=== PATIENT | female | born 1940 | race Caucasian/White ===

== ENCOUNTER 2022-01-18 15:01 | Emergency (ER) | payer MEDICARE ==
--- NOTE | 2022-01-18 15:52 | ED ---
General Adult HPI - General Chief complaint: Neuro Symptoms/Deficit Stated complaint: Weakness Time Seen by Provider: 01/18/22 15:35 Source: patient, RN notes reviewed, old records reviewed Mode of arrival: ambulatory Limitations: no limitations - History of Present Illness Initial comments: Patient has a 81-year-old female with past medical history remarkable for hypertension, atrial fibrillation on xeralto who presents emergency Department complaining of weakness. States she is having intermittent weakness over the last few days. States she was having difficulty picking up things like a few days ago. He has recurred each day. Unknown if it is constant or not. Today family also noticed that for a brief period time she was dragging her right leg when she walked. That is since resolved. She denies any history of strokes. States she is compliant with her blood thinning medication. His no other acute complaints at this time. Denies any sensory deficits. Denies any current weakness. Is ambulating without difficulty. Patient's son presents with her and corroborates the story. States she is back to her baseline at this time. Denies any trauma or falls. - Related Data Home Medications Medication Instructions Recorded Confirmed Ferrous Sulfate [Feosol] 325 mg PO BID 01/18/22 01/18/22 Levothyroxine Sodium [Synthroid] 100 mcg PO DAILY 01/18/22 01/18/22 Losartan Potassium 50 mg PO HS 01/18/22 01/18/22 Omeprazole Magnesium [PriLOSEC OTC] 20 mg PO DAILY 01/18/22 01/18/22 Pantoprazole Sodium 40 mg PO DAILY 01/18/22 01/18/22 Pioglitazone [Actos] 30 mg PO DAILY 01/18/22 01/18/22 Rivaroxaban [Xarelto] 20 mg PO HS 01/18/22 01/18/22 Simvastatin 40 mg PO HS 01/18/22 01/18/22 glipiZIDE [Glucotrol] 10 mg PO BID 01/18/22 01/18/22 hydroCHLOROthiazide [Hydrodiuril] 25 mg PO DAILY 01/18/22 01/18/22 metFORMIN HCL [Glucophage] 1,000 mg PO BID 01/18/22 01/18/22 Allergies Allergy/AdvReac Type Severity Reaction Status Date / Time Penicillins Allergy Facial Verified 01/18/22 17:27 Swelling Review of Systems ROS Statement: Those systems with pertinent positive or pertinent negative responses have been documented in the HPI. Review of Systems: CONST: Denies fever EYES: Denies blurry vision ENT: Denies nasal congestion C/V: Denies Chest pain RESP: Denies shortness of breath GI: Denies abdominal pain : Denies dysuria SKIN: Denies rash. MSK: Denies joint pain. NEURO: Denies headache ROS Other: All systems not noted in ROS Statement are negative. Past Medical History Past Medical History: Atrial Fibrillation, Hypertension History of Any Multi-Drug Resistant Organisms: None Reported Past Surgical History: Cholecystectomy Past Psychological History: No Psychological Hx Reported Smoking Status: Never smoker Past Alcohol Use History: None Reported Past Drug Use History: None Reported General Exam - General Exam Comments Initial Comments: General: Appears in no acute distress. HEAD: Normal with no signs of head trauma. EYES: PERRLA, EOMI, conjunctiva normal, no discharge. Pupils are 3 mm equal bilaterally. ENT: Hearing grossly intact, normal oropharynx. RESPIRATORY: Clear breath sounds bilaterally. No wheezes, rales, or rhonchi. C/V: Regular rate and rhythm. S1 and S2 auscultated, no edema, peripheral pulses 2+ and intact throughout ABD: Abd is soft, nontender, nondistended EXT: Normal range of motion, no obvious deformity SKIN: No rashes or lesions observed on exposed skin. NEURO: Alert and oriented x 4. Cranial nerves II-XII intact. No focal sensory or strength deficits. NIH is 0. GCS of 15. Ambulates without difficulty. Limitations: no limitations Course Vital Signs 01/18/22 01/18/22 01/18/22 15:14 16:50 18:23 Temperature 98.2 F Pulse Rate 93 82 57 L Respiratory 16 18 18 Rate Blood Pressure 197/93 154/81 186/103 O2 Sat by Pulse 99 98 99 Oximetry 01/18/22 19:28 Temperature 98.1 F Pulse Rate 99 Respiratory 16 Rate Blood Pressure 171/82 O2 Sat by Pulse 99 Oximetry Medical Decision Making - Medical Decision Making Based on the patient's presentation and physical exam, patient presents with nonspecific neurological complaints that are not reproducible on exam. Initially complaints and findings including issues with grasping with her right hand began a few days ago. Greater than 24 hours ago. Family members also noticed the patient dragging her right foot somewhat when she walked. All symptoms have since resolved. No history of strokes. Patient is not a TPA candidate as she is on a blood thinning medication, and the NIH is 0 at this time. Risks far outweigh the benefits. Patient is also having symptoms for greater than 24 hours. Therefore, code stroke was not activated. We will however obtain a similar workup, including obtaining a urinalysis, basic labs, screening EKG, and CT imaging of the brain. Patient and patient's son were in agreement with this plan. EKG shows no signs of acute ischemia. Normal sinus rhythm.Laboratory studies were all unremarkable. Blood sugar was within normal limits. Vital signs remained within normal limits at this time. Chest x-ray shows no acute cardio pulmonary process. Brain CT and CT angiogram of the neck and brain revealed a 1.9 cm masslike area concerned for primary malignancy versus metastatic region located in the left parietal region with surrounding vasogenic edema. No signs of midline shift. I updated the patient and explained to her that it there is concern for brain cancer with the presence of a mass which is likely causing her intermittent symptoms over the last few days. She and her express understanding understanding. The plan is to admit this hospital. I spoke with Dr. flowers of oncology was in agreement with admitting. We felt that with the lack neuro deficits of midline shift, it was safe for admission here for further workup including imaging to evaluate for other lesions. MRI of brain was ordered with contrast as well as CT of the chest, abdomen, pelvis. Xeralto will be held. I discussed the case with the city call physician, Dr. griffin as well as neurology Dr. cleveland. After further discussion, decision was made to transfer the patient in the event that she does require neurosurgical care due to the brain lesion and absence for neurosurgery at our facility. She may require biopsy or other intervention if symptoms worsen. I did discuss this with Dr. Flowers who was made aware of the transfer. I discussed transfer with the patient who accepted. I spoke with Dr. Sanchez of [facility] who accepted the patient. She'll be transferred via EMS in stable condition. Patient was started on 4 mg IV push of Decadron every 8 hours for the vasogenic edema. Home antihypertensives were ordered. Vitals remain wnl. NIH remains 0. Plan is for completion of cancer workup at the outpatient facility. The patient and her were in agreement with this plan. - Lab Data Result diagrams: 01/18/22 15:47 01/18/22 15:47 Lab Results 01/18/22 01/18/22 01/18/22 Range/Units 15:47 15:47 15:47 WBC 6.5 (3.8-10.6) k/uL RBC 4.22 (3.80-5.40) m/uL Hgb 12.2 (11.4-16.0) gm/dL Hct 37.4 (34.0-46.0) % MCV 88.6 (80.0-100.0) fL MCH 29.0 (25.0-35.0) pg MCHC 32.7 (31.0-37.0) g/dL RDW 13.8 (11.5-15.5) % Plt Count 238 (150-450) k/uL MPV 6.9 Neutrophils % 62 % Lymphocytes % 28 % Monocytes % 7 % Eosinophils % 2 % Basophils % 0 % Neutrophils # 4.0 (1.3-7.7) k/uL Lymphocytes # 1.8 (1.0-4.8) k/uL Monocytes # 0.4 (0-1.0) k/uL Eosinophils # 0.1 (0-0.7) k/uL Basophils # 0.0 (0-0.2) k/uL PT 10.4 (9.0-12.0) sec INR 1.0 (<1.2) APTT 25.1 (22.0-30.0) sec Sodium 136 L (137-145) mmol/L Potassium 3.6 (3.5-5.1) mmol/L Chloride 99 (98-107) mmol/L Carbon Dioxide 25 (22-30) mmol/L Anion Gap 12 mmol/L BUN 13 (7-17) mg/dL Creatinine 0.81 (0.52-1.04) mg/dL Est GFR (CKD-EPI)AfAm 79 (>60 ml/min/1.73 sqM) Est GFR (CKD-EPI)NonAf 69 (>60 ml/min/1.73 sqM) Glucose 130 H (74-99) mg/dL POC Glucose (mg/dL) (70-110) mg/dL POC Glu Supervising Fire Marshal ID Calcium 9.8 (8.4-10.2) mg/dL Total Bilirubin 0.5 (0.2-1.3) mg/dL AST 18 (14-36) U/L ALT 16 (4-34) U/L Alkaline Phosphatase 81 (38-126) U/L Total Protein 7.5 (6.3-8.2) g/dL Albumin 4.8 (3.5-5.0) g/dL Urine Color Urine Appearance (Clear) Urine pH (5.0-8.0) Ur Specific [place] (1.001-1.035) Urine Protein (Negative) Urine Glucose (UA) (Negative) Urine Ketones (Negative) Urine Blood (Negative) Urine Nitrite (Negative) Urine Bilirubin (Negative) Urine Urobilinogen (<2.0) mg/dL Ur Leukocyte Esterase (Negative) 01/18/22 01/18/22 Range/Units 17:35 20:24 WBC (3.8-10.6) k/uL RBC (3.80-5.40) m/uL Hgb (11.4-16.0) gm/dL Hct (34.0-46.0) % MCV (80.0-100.0) fL MCH (25.0-35.0) pg MCHC (31.0-37.0) g/dL RDW (11.5-15.5) % Plt Count (150-450) k/uL MPV Neutrophils % % Lymphocytes % % Monocytes % % Eosinophils % % Basophils % % Neutrophils # (1.3-7.7) k/uL Lymphocytes # (1.0-4.8) k/uL Monocytes # (0-1.0) k/uL Eosinophils # (0-0.7) k/uL Basophils # (0-0.2) k/uL PT (9.0-12.0) sec INR (<1.2) APTT (22.0-30.0) sec Sodium (137-145) mmol/L Potassium (3.5-5.1) mmol/L Chloride (98-107) mmol/L Carbon Dioxide (22-30) mmol/L Anion Gap mmol/L BUN (7-17) mg/dL Creatinine (0.52-1.04) mg/dL Est GFR (CKD-EPI)AfAm (>60 ml/min/1.73 sqM) Est GFR (CKD-EPI)NonAf (>60 ml/min/1.73 sqM) Glucose (74-99) mg/dL POC Glucose (mg/dL) 326 H (70-110) mg/dL POC Glu [employer] Marimar Meléndez Calcium (8.4-10.2) mg/dL Total Bilirubin (0.2-1.3) mg/dL AST (14-36) U/L ALT (4-34) U/L Alkaline Phosphatase (38-126) U/L Total Protein (6.3-8.2) g/dL Albumin (3.5-5.0) g/dL Urine Color Colorless Urine Appearance Clear (Clear) Urine pH 6.5 (5.0-8.0) Ur Specific [place] 1.022 (1.001-1.035) Urine Protein Trace H (Negative) Urine Glucose (UA) Negative (Negative) Urine Ketones Negative (Negative) Urine Blood Negative (Negative) Urine Nitrite Negative (Negative) Urine Bilirubin Negative (Negative) Urine Urobilinogen <2.0 (<2.0) mg/dL Ur Leukocyte Esterase Negative (Negative) - EKG Data -: EKG Interpreted by Me EKG Comments: 12-lead Electrocardiogram Interpretation Note EKG was reviewed and interpreted by myself. 12-lead ECG performed at 1538 is interpreted by me as revealing normal sinus rhythm at a rate of 90 beats per minute. [place] is normal. AR interval is 170 ms, QRS durations 101 ms, QTc is 413 ms.. There were no ST or T wave abnormalities to suggest myocardial ischemia or injury. R wave progression across the precordium was satisfactory. By my interpretation this EKG is non-diagnostic for acute ischemia. Critical Care Time Critical Care Time: Yes Total Critical Care Time: 35 Critical Care Time: Upon my evaluation, this patient had a high probability of imminent or life- threatening deterioration due to new brain mass, which required my direct attention, intervention, and personal management. I have personally provided 35 minutes of critical care time exclusive of time spent on separately billable procedures. Time includes review of laboratory data, radiology results, discussion with consultants, and monitoring for potenti al decompensation. Interventions were performed as documented in my note. Disposition Clinical Impression: Brain mass Disposition: OTHER INSTITUTION NOT DEFINED Condition: Stable Referrals: Raegan Jaffe DO [Primary Care Provider] - 1-2 days Time of Disposition: 18:40 - Out of Hospital Transfer - Req. Specs Out of Hospital Transfer - Requested Specifics: Other Emergency Center (Transfer to higher level of care, requires facility with neurosurgery.)
[2022-01-18 15:57] LABS: Basophils % (A) 0 %; Eosinophils # (A) 0.1 k/uL (0-0.7); Eosinophils % (A) 2 %; HCT 37.4 % (34.0-46.0); HGB 12.2 gm/dL (11.4-16.0); Lymphocytes # (A) 1.8 k/uL (1.0-4.8); Lymphocytes % (A) 28 %; MCHC 32.7 g/dL (31.0-37.0); MCV 88.6 fL (80.0-100.0); Mean Platelet Volume 6.9; Monocytes # (A) 0.4 k/uL (0-1.0); Monocytes % (A) 7 %; Neutrophils % (A) 62 %; Platelet Count 238 k/uL (150-450); RBC 4.22 m/uL (3.80-5.40); RDW 13.8 % (11.5-15.5); WBC 6.5 k/uL (3.8-10.6)
[2022-01-18 16:06] LABS: Albumin 4.8 g/dL (3.5-5.0); Calcium 9.8 mg/dL (8.4-10.2); Potassium 3.6 mmol/L (3.5-5.1); Total Bilirubin 0.5 mg/dL (0.2-1.3); Total Protein 7.5 g/dL (6.3-8.2)
[2022-01-18 16:07] LABS: Partial Thromboplastin Time 25.1 sec (22.0-30.0); Prothrombin Time 10.4 sec (9.0-12.0)
--- NOTE | 2022-01-18 16:09 | XR ---
EXAMINATION TYPE: XR chest 2V DATE OF EXAM: 01/18/2022 4:06 PM COMPARISON: 10/20/2013 TECHNIQUE: XR chest 2V Frontal and lateral views of the chest. CLINICAL INDICATION:Female, 81 years old with history of altered mental status; FINDINGS: Lungs/Pleura: There is flattening of the diaphragm with increased lucency of the lungs. No evidence o f pneumothorax, pleural effusion or focal consolidation. Pulmonary vascularity: Unremarkable. Heart/mediastinum: Cardiomediastinal silhouette is unremarkable. Musculoskeletal: No acute osseous pathology. IMPRESSION: No acute cardiopulmonary disease/process.
--- NOTE | 2022-01-18 16:42 | CT ---
EXAMINATION TYPE: CT brain wo con for TPA DATE OF EXAM: 01/18/2022 COMPARISON: None HISTORY: Right arm weakness. CT DLP: 1177.[address] of the brain was performed. The ventricles, basal cisterns and sulci overlying the cerebral convexities demonstrate mild enlargem ent. There is no evidence for intracranial hemorrhage or sulcal effacement. There is decreased attenuation about the periventricular white matter and deep white matter of both c erebral hemispheres, compatible with chronic small vessel ischemia. Differential diagnosis does inclu de demyelination. Masslike area with surrounding vasogenic edema high left parietal region measuring 1.9 cm. Suspect un derlying mass. Osseous calvarium is intact. If symptoms persist consider MRI. IMPRESSION: 1. Age related atrophic and chronic small vessel ischemic change without acute intracranial process s een at this time. 2. Masslike area with surrounding vasogenic edema high left parietal region measuring 1.9 cm. Suspect primary malignancy versus metastatic lesion.
--- NOTE | 2022-01-18 16:55 | CT ---
EXAMINATION TYPE: CT angio head neck DATE OF EXAM: 01/18/2022 COMPARISON: None HISTORY: Right arm weakness. CT DLP: 433.5 mGycm CONTRAST: Performed with IV Contrast, patient injected with 65ml mL of Isovue 370. Combination Contrast CTA cervical carotids and [place] CTA cervical carotids with 3-D recons truction Contrast CTA of the cervical carotids was performed 3-D reconstruction imaging obtained at a separate workstation. Right carotid system: Mild plaque is seen of the right common carotid artery. There is mild plaque a lso noted at the carotid bulb and proximal ICA. No significant diameter reduction. ECA is patent. Right vertebral artery appears unremarkable. Left carotid system: Mild plaque is seen of the left common carotid artery. There is mild plaque als o noted at the carotid bulb and proximal ICA. No significant diameter reduction. ECA is patent. Lef t vertebral artery appears unremarkable. IMPRESSION: 1. No significant diameter reduction to account for the patient's symptoms. CTA [place] with 3-D reconstruction Contrast CTA of [place] was performed 3-D reconstruction imaging obtained at a separate workstation. Vertebrobasilar system as well as intracranial portions of the internal carotid arteries and their ma julianne tributaries are patent. I do not see evidence for sizable aneurysm or vascular malformation. Pl ease note MRI provides greater sensitivity and specificity. 1.8 cm lesion high left parietal lobe wit h surrounding vasogenic edema compatible with underlying neoplasm. IMPRESSION: 1. No significant stenosis or vascular asymmetry. 2. 1.8 cm lesion high left parietal lobe with surrounding vasogenic edema compatible with underlying neoplasm. NASCET criteria was used in interpretation of this exam?
[2022-01-18 17:51] LABS: Appearance,Urine Clear (Clear); Bilirubin,Urine Negative (Negative); Blood,Urine Negative (Negative); Color,Urine Colorless; Glucose,Urine (UA) Negative (Negative); Ketones,Urine Negative (Negative); Leukocyte Esterase,Urine Negative (Negative); Nitrite,Urine Negative (Negative); PH, Urine 6.5 (5.0-8.0); Protein,Urine Trace (Negative); Specific Gravity,Urine 1.022 (1.001-1.035); Urobilinogen,Urine <2.0 mg/dL (<2.0)
[2022-01-18] MEDS ORDERED: DEXAMETHASONE SOD PHOSPHATE 4 MG/ML 1 ML VIAL IVP SCH (18:00)
[2022-01-18 19:31] VITALS: BP 171/82; PULSE 99; RESP 16; TEMP 98.1
[2022-01-18 20:26] LABS: Glucose,Whole Blood 326 mg/dL (70-110)
[2022-01-18] MEDS ORDERED: metFORMIN 500 MG TAB PO SCH (21:00)
[2022-01-18] MEDS ORDERED: glipiZIDE 10 MG TAB PO SCH (21:00)
[2022-01-18] MEDS ORDERED: LOSARTAN 50 MG TAB PO SCH (21:00)
[2022-01-19] MEDS ORDERED: hydroCHLOROthiazide 25 MG TAB PO SCH (09:00)
[2022-01-19] MEDS ORDERED: LEVOTHYROXINE 100 MCG TAB PO SCH (09:00)
== END 2022-01-18 20:50 | disposition other institution (70) ==
LOC: EC 15:01
DX: G93.89 Other specified disorders of brain (principal); I10 Essential (primary) hypertension; Z88.0 Allergy status to penicillin
CPT/HCPCS: 99291 ×2; 96374 ×2; 36415; 93005; 80053; 85025; 85610; 85730; 81003; 71046; 70496; 70450; 70498; J1100; Q9967